=== PATIENT | male | born 1975 ===

== ENCOUNTER 2016-07-30 12:50 | Day surgery (SDC) | payer SELFPAY ==
[~2016-07-30] VITALS: Ht 168.1 cm; Wt 69.9 kg
[2016-07-30] MEDS ORDERED: NORMAL SALINE IV SCH (14:00)
[2016-07-30] MEDS ORDERED: TOBRAMYCIN SULFATE IV SCH (14:00)
[2016-07-31] MEDS ORDERED: ASPIRIN 325 MG TABLET PO SCH (09:00)
== END 2016-08-17 10:24 | disposition home or self-care (01) ==
LOC: SDC 12:50
PROVIDERS: ATTEND Internal Medicine
DX: Z53.21 Procedure and treatment not carried out due to patient leaving prior to being seen by health care provider (principal)
CPT/HCPCS: 36415; 85049